=== PATIENT | female | born 1975 ===

== ENCOUNTER 2018-06-09 08:45 | Emergency (ER) | payer MEDICAID, OTHER ==
[2018-06-09 08:45] VITALS: BMI 32.9
[2018-06-09 08:53] VITALS: PULSE 75; RESP 18; TEMP 97.5; O2SAT 98
--- NOTE | 2018-06-09 09:19 | ED PDOC ---
HPI: General Adult Time Seen by Provider: 06/09/18 09:10 Chief Complaint (Nursing): ENT Problem Chief Complaint (Provider): ENT Problem History Per: Patient History/Exam Limitations: no limitations Additional Complaint(s): Chris Lipscomb is a 42 year old female with a past medical history of HTN and hypercholesterolemia, who presents to the emergency department requesting removal of staple from right ear. Patient states the staple was used for weight reduction and placed in ear x2-3 years ago. She describes her ear as painful but denies fever or any other symptoms. PMD: no provider Past Medical History Reviewed: Historical Data, Nursing Documentation, Vital Signs Vital Signs: Last Vital Signs Temp 97.5 F L 06/09/18 08:52 Pulse 75 06/09/18 08:52 Resp 18 06/09/18 08:52 BP 144/92 H 06/09/18 08:52 Pulse Ox 98 06/09/18 08:57 - Medical History PMH: HTN (takes bumetanide), Hypercholesterolemia Denies: Chronic Kidney Disease - Surgical History Surgical History: No Surg Hx - Family History Family History: States: Unknown Family Hx - Home Medications Home Medications: Ambulatory Orders Medication Instructions Recorded Diclofenac Sodium [Voltaren] 75 mg PO BID 09/18/15 Flaxseed Oil [Natural Flax Seed 1,000 mg PO DAILY 09/18/15 Oil] Linaclotide [Linzess] 145 mcg PO PRN PRN 09/18/15 Lysine [Enisyl] 500 mg PO DAILY 09/18/15 Multivit-Min/Iron/Folic/Ibt021 1 each PO DAILY 09/18/15 [Hair, Skin & Nails Caplet] Cagvl-9-Vbun Ethyl Esters [OMEGA 3] 500 mg PO DAILY 09/18/15 RX: Bumetanide [Bumex] 1 mg PO DAILY 09/18/15 RX: Vitamin E [Vitamin E 400 Units 400 iu PO Q2W 09/18/15 Cap] Oxycodone HCl/Acetaminophen 5 - 325 mg PO Q4 PRN 09/21/15 [Percocet 5-325 mg Tablet] Polymyxin/Trimethoprim Sulfate 1 drop OU Q4 09/21/15 [Polytrim Ophth Soln] Sulfamethoxazole/Trimethoprim 1 tab PO BID #20 tab 06/09/18 [Bactrim DS 800 mg-160 mg] - Allergies Allergies/Adverse Reactions: Allergies Allergy/AdvReac Type Severity Reaction Status Date / Time avocado Allergy ANAPHYLAXIS Verified 06/09/18 08:56 pineapple Allergy ITCHING Verified 06/09/18 08:56 adhesive AdvReac Mild SWELLING Verified 06/09/18 08:56 dust Allergy RASH Uncoded 06/09/18 08:56 Review of Systems Constitutional: Negative for: Fever ENT: Positive for: Ear Pain Physical Exam - Reviewed Nursing Documentation Reviewed: Yes Vital Signs Reviewed: Yes - Physical Exam Appears: Positive for: Non-toxic, No Acute Distress Head Exam: Positive for: ATRAUMATIC, NORMOCEPHALIC Skin: Positive for: Normal Color, Warm, Dry Eye Exam: Positive for: Normal appearance, EOMI, PERRL ENT: Positive for: Other (right ear: staple in outer pinna with minimal surrounding erythema; (-) drainage) Neck: Positive for: Normal, Painless ROM, Supple Cardiovascular/Chest: Positive for: Regular Rate, Rhythm. Negative for: Murmur Respiratory: Positive for: Normal Breath Sounds. Negative for: Respiratory Distress Neurologic/Psych: Positive for: Alert, Oriented. Negative for: Motor/Sensory Deficits - ECG O2 Sat by Pulse Oximetry: 98 (RA) Pulse Ox Interpretation: Normal Medical Decision Making Medical Decision Making: Time: 917 Impression: staple in right ear Plan: --Removed staple with staple remover --Placed on antibiotics Scribe Attestation: Documented by Sal Barth, acting as a scribe for Bernardo Barnes MD. Provider Scribe Attestation: All medical record entries made by the Scribe were at my direction and personally dictated by me. I have reviewed the chart and agree that the record accurately reflects my personal performance of the history, physical exam, medical decision making, and the department course for this patient. I have also personally directed, reviewed, and agree with the discharge instructions and disposition. Disposition - Clinical Impression Clinical Impression: Foreign body of ear - Patient ED Disposition Is Patient to be Admitted: No Counseled Patient/Family Regarding: Diagnosis, Need For Followup, Rx Given - Disposition Referrals: [facility] [Outside] Disposition: Routine/Home Disposition Time: 09:30 Condition: FAIR Prescriptions: Sulfamethoxazole/Trimethoprim [Bactrim DS 800 mg-160 mg] 1 tab PO BID #20 tab Instructions: Removing Objects Stuck in the Ear Forms: [employer] (Turkish)
[2018-06-09 09:31] VITALS: BP 137/88
== END 2018-06-09 09:20 | disposition home or self-care (01) ==
LOC: H.ER 08:45
DX: T16.1XXA Foreign body in right ear, initial encounter (principal); X58.XXXA Exposure to other specified factors, initial encounter